=== PATIENT | male | born 1950 ===

== ENCOUNTER → 2019-11-03 18:17 | Outpatient (ROUT) | payer MEDICARE, OTHER, SELFPAY ==
[2019-11-03 18:47] LABS: Add Manual Diff / Slide Review NO; Aspartate Aminotransferase 33 IU/L (17-59); BUN Creatinine Ratio 21.2 (6-22); Basophils Absolute Auto 0 /uL (0-100); Basophils Percent Auto 0.5 % (0-2); Blood Urea Nitrogen 18 mg/dL (9-20); Calcium 9.6 mg/dL (8.4-10.2); Carbon Dioxide 22 mmol/L (22-32); Chloride 105 mmol/L (98-107); Cholesterol 134 mg/dL (140-199); Eosinophils Absolute Auto 0 /uL (0-450); Eosinophils Percent Auto 0.1 % (2-4); Estimated Glomerular Filt Rate > 60.0 mL/min (>60); Glucose 125 mg/dL (80-110); HDL Cholesterol 57 mg/dL (40-60); HEMOLYSIS < 15 (0-50); Hematocrit 43.7 % (41-53); Hemoglobin 15.2 g/dL (13.5-17.5); LDL Cholesterol Calculated 64 mg/dL (<100); Lymphocytes Absolute Auto 1500 /uL (1100-4500); Lymphocytes Percent Auto 17.9 % (25-40); Mean Corpuscular HGB Conc 34.7 % (30-36); Mean Corpuscular Hemoglobin 29.9 PG (26-34); Mean Corpuscular Volume 86.3 fL (80-100); Monocytes Absolute Auto 400 /uL (0-900); Monocytes Percent Auto 5.1 % (3-14); Neutrophils Absolute Auto 6300 /uL (1500-7000); Neutrophils Percent Auto 76.4 % (50-75); Platelet Count 192 X10^3/uL (150-400); Potassium 4.2 mmol/L (3.4-5.1); Red Blood Cell Count 5.06 X10^6/uL (4.5-5.9); Red Cell Distribution Width 12.9 % (11.6-14.8); Sodium 138 mmol/L (137-145); Triglycerides 67 mg/dL (35-150); Uric Acid 8.1 mg/dL (3.5-8.5); White Blood Cell Count 8.2 X10^3/uL (4.5-11.0)
[2019-11-03 19:00] LABS: Hemoglobin A1C% w Est Avg Glu 5.8 % (4.0-6.0)
== END ==
PROVIDERS: Visit Provider Internal Medicine
DX: M10.9 Gout, unspecified (principal); E78.2 Mixed hyperlipidemia; I10 Essential (primary) hypertension; R73.01 Impaired fasting glucose
CPT/HCPCS: 80048; 80061; 83036; 84450; 84550; 85025